=== PATIENT | male | born 1960 | race Caucasian/White ===

== ENCOUNTER 2020-01-23 11:21 | Outpatient (CLI) | payer OTHER, SELFPAY ==
--- NOTE | 2020-01-23 11:32 | MR_ITS ---
WS: [id number] MRI BRAIN WITHOUT CONTRAST HISTORY: TIA COMPARISON: None available. TECHNIQUE: Diffusion imaging, multiplanar T1, T2 and FLAIR imaging obtained. No acute infarct. There is a large remote infarct involving the RIGHT temporoparietal region. Surroun ding gliosis with mild ex vacuole dilatation of the adjacent RIGHT lateral ventricle. There are a few additional areas of scattered T2 and FLAIR signal hyperintensities from chronic ischemic disease. No hemorrhage. Mild atrophy. Slightly dilated ventricles and extra-axial spaces on the basis of atrophy and prior infarcts. No inferior displacement of cerebellar tonsils. The sella turcica and pituitary gland are unremarkabl e. Posterior fossa is also unremarkable. Dural venous sinuses and [place] demonstrate no abnormality on this unenhanced studies. Paranasal sinuses: Small mucous retention cyst in the floor the RIGHT maxillary sinus. No air-fluid l evels. Mild mucoperiosteal thickening in the frontal and ethmoid air cells. Mastoid air cells: Normal mastoid air cell disease. Calvarium and scalp: Negative. Small nodules within the RIGHT parotid. The largest measures 8 mm. May be small cysts, lymph nodes or adenoma. Chung shaped in appearance therefore suspect these are probably lymph nodes. MR/MR head wo con* [id number] IMPRESSION: 1. No evidence for an acute infarct or hemorrhage. 2. Moderate size remote RIGHT temporoparietal infarct with gliosis. 3. Mild chronic microvascular ischemic disease and mild atrophy.
--- NOTE | 2020-01-23 12:45 | USCV_ITS ---
CarmenMynor Age: 59 Gender: M : 1960 Exam Date: 01/23/2020 12:32 Ordering Phys: Calvin Peacock XX Technologist: Alysha Suggs [place] [facility] [place] Risk Factors: Previous Vascular Surgery: Right Brachial BP: / Left Brachial BP: / Right Left Velocity (cm/s) Spectral Plaque Velocity (cm/s) Spectral Plaque Syst/Diast Broadening Syst/Diast Broadening 112.50/22.10 Prox CCA 107.80/ 19.70 67.60/ 14.00 Mid CCA 79.50 / 17.10 77.70/ 21.80 Distal CCA 88.90 / 12.00 88.20/ 14.30 Prox ICA 42.20 / 18.20 59.80/ 14.80 Mid ICA 50.90 / 17.20 30.40/ 9.60 Distal ICA 68.40 / 23.30 97.10 ECA 87.80 1.31 ICA/CCA 0.86 Antegrade Vertebral Antegrade 37.40/ 13.40 cm/s 51.90/ 14.50 cm/s Tri Subclavian Tri 136.7 118.0 0 0 FINDINGS Comparison: none available. Mild dilatation of the right ICA with abnormal waveforms. Suspect distal obstructive process or occlusion which may be terminal make up operator. Normal left carotid artery. Bilateral antegrade vertebral arteries. CONCLUSIONS Abnormal right ICA and abnormal waveform, suspect due to occlusion or high grade stenosis distal intracranial carotid. CTA carotid/cerebral arteries recommended to confirm origin of abnormal findings. Dr. Coral Pike DO (Electronically Signed) Final Date: 23 January 2020 13:13 S
== END 2020-01-23 11:22 | disposition home or self-care (01) ==
PROVIDERS: Family Provider Internal Medicine; PCP Internal Medicine; Visit Provider Internal Medicine
DX: G45.9 Transient cerebral ischemic attack, unspecified (principal); I99.8 Other disorder of circulatory system
CPT/HCPCS: 70551; 93880

== ENCOUNTER 2020-04-25 12:31 | Outpatient (CLI) | payer OTHER, SELFPAY ==
--- NOTE | 2020-04-25 12:43 | CT_ITS ---
WS: [id number] CTA HEAD AND NECK TECHNIQUE: Contrast enhanced CTA of the head and neck with coronal and sagittal reformatted images an d maximum intensity projection (MIP) images. NASCET criteria utilized. CLINICAL INFORMATION: HX OF TIA COMPARISON: Ultrasound January 23, 2020 DLP: 1936.[address] scans at [facility] use at least one of these dose optimization techniques: automat ed exposure control; mA and/or kV adjustment per patient size (includes targeted exams where dose is matched to clinical indication); or iterative reconstruction. FINDINGS: RIGHT: Right common carotid artery is patent. Normal right carotid bulb. Retropharyngeal course to th e right cervical ICA with tortuous right cervical ICA. Right ICA is patent to the skull base. Moderat e calcified cavernous carotid calcification. LEFT: Left common carotid artery is patent. Tortuous left cervical ICA. Mild calcified atheromatous d isease left carotid bulb extending into the cervical ICA. No significant stenosis. Left ICA is patent to the skull base. Both vertebral arteries are patent. Basilar artery is patent. Normal vascularity to the PRODUCT DEVELOPMENT TECHNICIAN territory bilaterally. Normal vascularity to the VINICIO and MCA territories bilaterally. No evidence of proximal high-grade stenosis or aneurysm. Lung apices are normal. Both vertebral arteries are patent.Chronic infarct in the right posterior fro ntal lobe with encephalomalacia. Chronic lacunar infarct left thalamus. Small chronic infarct left ce rebellum. Moderate parenchymal volume loss. Mild small vessel changes. Small retention cyst right max illary sinus. Mucosal thickening with partial opacification the right sphenoid sinus and posterior ri ght ethmoid air cells. CT/CT angio headneck* [id number] IMPRESSION: 1. Less than 50% ICA stenosis bilaterally. 2. Unremarkable intracranial CTA. 3. Codominant and patent vertebral arteries bilaterally. 4. Chronic infarct right posterior frontal lobe. 5. Chronic lacunar infarct left thalamus and left cerebellum.
[2020-04-25] MEDS: iohexol 350 mg/mL 100 mL Btl IV (13:34)
== END 2020-04-25 12:32 | disposition home or self-care (01) ==
PROVIDERS: Family Provider Internal Medicine; PCP Internal Medicine; Visit Provider Family Medicine
DX: Z86.73 Personal history of transient ischemic attack (TIA), and cerebral infarction without residual deficits (principal); I65.23 Occlusion and stenosis of bilateral carotid arteries; I63.9 Cerebral infarction, unspecified; I63.81 Other cerebral infarction due to occlusion or stenosis of small artery
CPT/HCPCS: 70496; 70498; Q9967

== ENCOUNTER 2020-04-25 12:35 | Outpatient (CLI) | payer OTHER, SELFPAY ==
--- NOTE | 2020-04-25 12:44 | CT_ITS ---
WS: [id number] CT CHEST TECHNIQUE: Contrast enhanced CT of the chest with coronal and sagittal reformatted images. CLINICAL INFORMATION: ABNORMAL CT COMPARISON: None. DLP: 664.[address] scans at [facility] use at least one of these dose optimization techniques: automat ed exposure control; mA and/or kV adjustment per patient size (includes targeted exams where dose is matched to clinical indication); or iterative reconstruction. FINDINGS: Moderate chronic emphysematous changes. No acute pulmonary infiltrates. Focal opacity along the right fissure appears to represent subsegmental atelectasis measuring 15 mm. Prominent lymph node right ax illa measuring 11 mm likely reactive. No left axillary lymphadenopathy. No mediastinal or hilar lymph adenopathy. Chronic right rib fractures with callus formation. Bulla formation left lower lobe measur ing 7.8 cm. Normal thoracic aorta and proximal main pulmonary arteries. Adrenal glands are normal. Normal GE junc tion. Low-attenuation lesion in the caudate measuring 2.2 CM likely hepatic cysts. Slight heterogenei ty in the head of the pancreas partially visualized and may be normal volume averaging but recommend CT abdomen pelvis for further evaluation. CT/CT chest w con* [id number] IMPRESSION: 1. Moderate chronic emphysematous changes. No suspicious pulmonary parenchymal abnormalities. 2. Focal opacity along the right fissure likely represents subsegmental atelec tasis or fibrosis. Recommend 6 month follow-up chest CT to confirm stability. 3. 2.2 cm low-attenuation lesion in the caudate lobe of the liver likely hepat ic cyst. 4. Slight heterogeneous low-attenuation head of the pancreas most likely volum e averaging but recommend CT abdomen pelvis for further evaluation. This is onl y partially included on this exam
[2020-04-25 13:05] LABS: Blood Urea Nitrogen 13 mg/dL (8-23); Glomerular Filtration Rate 76.2 mL/min (90-130)
[2020-04-25] MEDS: iohexol 350 mg/mL 100 mL Btl IV (13:39)
== END 2020-04-25 12:36 | disposition home or self-care (01) ==
LOC: RADWPI 12:36
PROVIDERS: Visit Provider Internal Medicine
DX: R93.89 Abnormal findings on diagnostic imaging of other specified body structures (principal); K76.9 Liver disease, unspecified
CPT/HCPCS: 71260; 82565; 84520; Q9967

== ENCOUNTER → 2020-06-13 09:50 | Outpatient (BNVA) | payer OTHER, SELFPAY | PROVIDERS: Referring Provider Family Medicine; Visit Provider Specialist | DX: R56.9 Unspecified convulsions (principal); I99.8 Other disorder of circulatory system; G43.711 Chronic migraine without aura, intractable, with status migrainosus; F17.210 Nicotine dependence, cigarettes, uncomplicated; Z86.73 Personal history of transient ischemic attack (TIA), and cerebral infarction without residual deficits | CPT/HCPCS: 99215 ==

== ENCOUNTER → 2020-07-11 14:05 | Outpatient (BNVA) | payer OTHER, SELFPAY | PROVIDERS: Visit Provider Specialist | DX: R56.9 Unspecified convulsions (principal) | CPT/HCPCS: 95816 ==

== ENCOUNTER → 2021-01-23 10:38 | Outpatient (BNVA) | payer OTHER, SELFPAY | PROVIDERS: Visit Provider Specialist | DX: G43.711 Chronic migraine without aura, intractable, with status migrainosus (principal); F60.9 Personality disorder, unspecified; R56.9 Unspecified convulsions; F17.210 Nicotine dependence, cigarettes, uncomplicated | CPT/HCPCS: 99214 ==

== ENCOUNTER → 2021-12-29 13:15 | Outpatient (BNVA) | payer OTHER, SELFPAY | PROVIDERS: Visit Provider Internal Medicine Pulmonary Disease | DX: J44.9 Chronic obstructive pulmonary disease, unspecified (principal); R91.1 Solitary pulmonary nodule; F17.210 Nicotine dependence, cigarettes, uncomplicated; Z99.81 Dependence on supplemental oxygen; E78.5 Hyperlipidemia, unspecified | CPT/HCPCS: 99204 ==

== ENCOUNTER 2022-01-01 13:23 | Outpatient (CLI) | payer OTHER, SELFPAY ==
[2022-01-01 14:26] LABS: Basophils # 0.1 10^3/uL (0.0-0.1); Basophils % 0.8 %; Eosinophils # 0.3 10^3/uL (0.0-0.8); Eosinophils % 3.8 %; Hematocrit 50.6 % (42.0-52.0); Hemoglobin 17.9 g/dL (11.7-16.6); Lymphocytes # 1.9 10^3/uL (0.8-4.8); Lymphocytes % 24.6 %; Mean Corpuscular HGB Conc 35.4 g/dL (30.0-36.0); Mean Corpuscular Hemoglobin 36.9 pg (28.0-34.0); Mean Corpuscular Volume 104.3 fl (80-94); Mean Platelet Volume 10.6 fL (7.4-10.4); Monocytes # 0.7 10^3/uL (0.2-0.9); Monocytes % 9.6 %; Neutrophils # 4.61 10^3/uL (1.8-7.7); Neutrophils % 60.9 %; Nucleated Red Blood Cells % 0 %; Platelet Count 189 10^3/cmm (130-400); Red Blood Count 4.85 10^6/uL (4.1-5.3); Red Cell Distribution Width 13.4 % (12.1-15.1); White Blood Count 7.6 10^3/uL (4.0-10.0)
--- NOTE | 2022-01-01 16:40 | ONC CON_ITS ---
Dr. José New Patient Note Patient: Mynor Morales Unit #: [id number]: 1960 Dicatated By: Joce José M.D.Date of Visit: Jan 01, 2022 Onc MED New Patient/Consult Referring Physician: Roula Shaw History of Present Illness: Mr. Mynor Morales, is a 61-year-old gentleman with a history of sleep apnea, on CPAP machine, COPD, on home oxygen and heavy smoking e.g. 1 to 3 packs a day, since age 8, , as per patient' he used to donate blood on a regular basis and last time , in 2019 ,when he went for blood donation, he was sent back because his blood was too thick. Patient said he was on oxygen [id number] and then his physician cut down his oxygen duration as he was maintaining his oxygen saturation in normal range. Patient also has history of sleep apnea but not using his CPAP machine as recommended. And he continues to smoke about a pack a day. Denies any family history of polycythemia, denies any headaches, denies any chest pain or heaviness, denies any hemoptysis or hematemesis. Denies any night sweats, denies any abdominal fullness denies any melena or hematochezia or jaundice As per patient he has arrowhead-like shadow in his right lung for which he is being followed by Dr. Shields, pulmonology and follow-up screening CT scan of the chest is under consideration and as per patient if it shows progression then bronchoscopy will be done. Past Medical History: Mr. Morales's medical history consists of alcohol dependence, cervicalgia, chronic obstructive pulmonary disease, chronic pain syndrome, depression, eft hip pain, history of pulmonary embolism, history of TIA, hyperlipidemia, intermittent explosive disorder, long time use of anticoagulants, peripheral vascular disease, and stimulant dependence. Past Surgical History: Mr. Morales's surgical/procedural history consists of appendectomy, left ankle repair, left carpal tunnel release, Covid vaccine #1 Chet J&J in 2020, Covid vaccine #1 Chet J&J in 2020, hip replacement x 4 in 1999, and neck surgery in 1993. Medications: Albuterol Sulfate 2 Puff(s) (of 108 (90 base) mcg/act) Aerosol Powder, Breath Activated Inhalation four times a day, Alendronate Sodium 1 Tablet (of 35 mg) Oral, Allopurinol 1 Tablet (of 300 mg) Oral daily, Budesonide-Formoterol Fumarate 2 Puff(s) (of 160-4.5 mcg/act) Aerosol Inhalation b.i.d., Carvedilol 0.5 Tablet (of 6.25 mg) Oral b.i.d., Cholecalciferol 1 Capsule (of 1000 International Unit(s)) Oral daily, Diclofenac Sodium 2 g (of 1.6 %) Gel (jelly) Topical four times a day PRN, Dicyclomine HCl 1 Tablet (of 20 mg) Oral t.i.d., DULoxetine HCl 1 Capsule (of 60 mg) Capsule Delayed Release Particles Oral every am, Floxin Otic 4 Drop(s) (of 0.3 %) Solution Otic b.i.d., Fluorometholone Acetate 1 Drop(s) (of 0.1 %) Suspension Ophthalmic b.i.d., guaiFENesin 1 Tablet (of 200 mg) Oral q 6 hours PRN, hydroCHLOROthiazide 0.5 Tablet (of 25 mg) Oral every am, Ipratropium-Albuterol Aerosol, solution Inhalation, Loperamide HCl 2 Capsule (of 2 mg) Oral four times a day PRN, Meclizine HCl 0.5 Tablet (of 25 mg) Tablet, chewable Oral t.i.d. PRN, Methocarbamol 2 Tablet (of 750 mg) Oral t.i.d. PRN, Nicotine Mini 1 Lozenge (of 4 mg) Mouth/throat q 4 hours PRN, Pravastatin Sodium 1 Tablet (of 40 mg) Oral ac pm, Pregabalin 1 Capsule (of 100 mg) Oral t.i.d., raNITIdine HCl 1 Tablet (of 150 mg) Oral b.i.d., Rivaroxaban 1 Tablet (of 20 mg) Oral at bedtime, Salsalate 1 Tablet (of 750 mg) Oral b.i.d., Sildenafil Citrate 1 Tablet (of 100 mg) Oral PRN, Terbinafine HCl (1 %) Cream Topical b.i.d., Topamax 1 Tablet (of 25 mg) Oral b.i.d., Topiramate 1 Tablet (of 100 mg) Oral at bedtime, Wixela Inhub Aerosol Powder, Breath Activated Inhalation Allergies: fentaNYL, Ketorolac Tromethamine, Meperidine HCl, and predniSONE. Social History: Mr. Morales is . He is an occasional smoker who smokes 1.0 pack/day. He has no history of drinking. He has indicated exposure to the following products: cigarettes. Family History: Mr. Morales's mother is : breast cancer. Mr. Morales's father at age 65: stroke. Review Of Symptoms: Review of Systems is not available for this patient. Vital Signs: Performed on Jan 01, 2022 15:34: 10, 9, 29.61, 2.26 sq.m, 73 in, 95 % (LOW), 84 /min, 18 /min, 119/76 mm(hg), 98.2 F (LOW), and 224.4 lbs (HIGH). Performance Status: 1 - No physically strenuous activity, but ambulatory and able to carry out light or sedentary work (e.g. office work, light house work). (ECOG) Physical Examination: ENMT - No mouth sores, no thrush, no jaundice, no cervical lymphadenopathy, Respiratory - Poor air entry otherwise clear, Cardiovascular - Regular rate and rhythm of heart, Abdomen - Soft, bowel sounds present, Extremities - No visible edema. Lab/Imaging: Most recent lab results are not available for this patient. Impression: Polycythemia, etiology unclear probably reactive/secondary to chronic lung condition requiring continuous home oxygen and chronic heavy smoking and noncompliance with sleep apnea management, other possibility could be polycythemia vera but less likely COPD on continuous home oxygen Chronic smoking since age 8, still active Plan: Discussed with patient regarding his labs white blood count 7.6 hemoglobin 17.9 normal being 11.7-16.6, hematocrit 50.6 normal being 42-52, platelets 189,000 Clinically, patient denies any specific complaints, today's lab shows improvement in his hematocrit when compared with CBC done on October 06, 2019 at that time his hemoglobin was 19.4 and hematocrit was 55.9 normal being 38.2-48.4, as per patient for the last couple of months he has been using his oxygen on regular basis. Still smoke about pack a day and still not using his CPAP machine as recommended by his PMD. Etiology of his polycythemia, could be due to hypoxia due to chronic smoking, underlying lung condition, noncompliant with CPAP machine and oxygen supplement. Patient was advised to quit smoking and was offered any assistance he may need patient was also advised to use CPAP machine as recommended by PMD, patient was also advised to discuss with pulmonology regarding optimal oxygen supplementation. His repeat labs done today shows improvement in his hematocrit now in normal range, will continue to monitor and he will return to clinic in 1 month with CBC.In the meantime patient was advised to maintain hydration and take aspirin a day. Patient also has concerns about his right lung abnormality for which he is being evaluated by pulmonology,, patient brought CD of his CT scan done in [place], we will request our radiology to reevaluate. Signed By: Joce José M.D. <<Signature on File>>
== END 2022-01-01 13:24 | disposition home or self-care (01) ==
PROVIDERS: Internal Medicine Hematology & Oncology; Visit Provider Internal Medicine Medical Oncology
DX: D75.1 Secondary polycythemia (principal); J44.9 Chronic obstructive pulmonary disease, unspecified; G47.33 Obstructive sleep apnea (adult) (pediatric); F17.210 Nicotine dependence, cigarettes, uncomplicated; Z99.81 Dependence on supplemental oxygen; Z79.899 Other long term (current) drug therapy
CPT/HCPCS: 36415; 85025; 99205

== ENCOUNTER 2022-01-28 12:49 | Outpatient (CLI) | payer OTHER, SELFPAY ==
[2022-01-28 13:40] LABS: Basophils # 0.1 10^3/uL (0.0-0.1); Eosinophils # 0.2 10^3/uL (0.0-0.8); Eosinophils % 3.5 %; Hematocrit 50.3 % (42.0-52.0); Hemoglobin 17.3 g/dL (11.7-16.6); Lymphocytes # 1.7 10^3/uL (0.8-4.8); Lymphocytes % 24.2 %; Mean Corpuscular HGB Conc 34.4 g/dL (30.0-36.0); Mean Corpuscular Volume 104.8 fl (80-94); Mean Platelet Volume 10.5 fL (7.4-10.4); Monocytes # 0.6 10^3/uL (0.2-0.9); Monocytes % 8.1 %; Neutrophils # 4.33 10^3/uL (1.8-7.7); Neutrophils % 62.5 %; Nucleated Red Blood Cells % 0 %; Platelet Count 199 10^3/cmm (130-400); Red Cell Distribution Width 13.3 % (12.1-15.1); White Blood Count 6.9 10^3/uL (4.0-10.0)
--- NOTE | 2022-02-01 17:31 | ONC FU_ITS ---
Dr. José follow up note Patient: Mynor Morales Unit #: [id number]: 1960 Dicatated By: Joce José M.D.Date of Visit:Jan 28, 2022 Onc Med Follow-up/Prog Note History of Present Illness: Mr. Mynor Morales, is a 61-year-old gentleman with a history of sleep apnea, on CPAP machine, COPD, on home oxygen and heavy smoking e.g. 1 to 3 packs a day, since age 8, , as per patient' he used to donate blood on a regular basis and last time , in 2019 ,when he went for blood donation, he was sent back because his blood was too thick. Patient said he was on oxygen [id number] and then his physician cut down his oxygen duration as he was maintaining his oxygen saturation in normal range. Patient also has history of sleep apnea but not using his CPAP machine as recommended. And he continues to smoke about a pack a day. Denies any family history of polycythemia, denies any headaches, denies any chest pain or heaviness, denies any hemoptysis or hematemesis. Denies any night sweats, denies any abdominal fullness denies any melena or hematochezia or jaundice As per patient he has arrowhead-like shadow in his right lung for which he is being followed by Dr. Shields, pulmonology and follow-up screening CT scan of the chest was Done on December 05, 2021 showed soft tissue mass density involving right hilum extending into anterior lateral right lung base larger since October 06, 2021 and significantly larger since April 09, 2021 suspicious for malignancy. Also showed central obstructing mass causing atelectasis and consolidation cannot be ruled out. Soft tissue fullness in the right hilum appearing mildly worsened since October 2021. Patient was evaluated by pulmonology and CT PET scan was ordered by Dr. Shields which was done on January 03, 2022 and it showed the right hilum is prominent but does not demonstrate FDG activity, consistent with benign finding. Right lower lobe atelectasis is FDG negative. There is no finding suggestive of malignancy. Came for follow-up, denies any specific complaints, no fever or chills, no nausea or vomiting, no diarrhea constipation, no hemoptysis hematemesis, patient on home oxygen, and is using his CPAP and also quit Smoking. And now being evaluated by pulmonology regarding right hilar mass Medications: Albuterol Sulfate 2 Puff(s) (of 108 (90 base) mcg/act) Aerosol Powder, Breath Activated Inhalation four times a day, Alendronate Sodium 1 Tablet (of 35 mg) Oral, Allopurinol 1 Tablet (of 300 mg) Oral daily, Budesonide-Formoterol Fumarate 2 Puff(s) (of 160-4.5 mcg/act) Aerosol Inhalation b.i.d., Carvedilol 0.5 Tablet (of 6.25 mg) Oral b.i.d., Cholecalciferol 1 Capsule (of 1000 International Unit(s)) Oral daily, Diclofenac Sodium 2 g (of 1.6 %) Gel (jelly) Topical four times a day PRN, Dicyclomine HCl 1 Tablet (of 20 mg) Oral t.i.d., DULoxetine HCl 1 Capsule (of 60 mg) Capsule Delayed Release Particles Oral every am, Floxin Otic 4 Drop(s) (of 0.3 %) Solution Otic b.i.d., Fluorometholone Acetate 1 Drop(s) (of 0.1 %) Suspension Ophthalmic b.i.d., guaiFENesin 1 Tablet (of 200 mg) Oral q 6 hours PRN, hydroCHLOROthiazide 0.5 Tablet (of 25 mg) Oral every am, Ipratropium-Albuterol Aerosol, solution Inhalation, Loperamide HCl 2 Capsule (of 2 mg) Oral four times a day PRN, Meclizine HCl 0.5 Tablet (of 25 mg) Tablet, chewable Oral t.i.d. PRN, Methocarbamol 2 Tablet (of 750 mg) Oral t.i.d. PRN, Nicotine Mini 1 Lozenge (of 4 mg) Mouth/throat q 4 hours PRN, Pravastatin Sodium 1 Tablet (of 40 mg) Oral ac pm, Pregabalin 1 Capsule (of 100 mg) Oral t.i.d., raNITIdine HCl 1 Tablet (of 150 mg) Oral b.i.d., Rivaroxaban 1 Tablet (of 20 mg) Oral at bedtime, Salsalate 1 Tablet (of 750 mg) Oral b.i.d., Sildenafil Citrate 1 Tablet (of 100 mg) Oral PRN, Terbinafine HCl (1 %) Cream Topical b.i.d., Topamax 1 Tablet (of 25 mg) Oral b.i.d., Topiramate 1 Tablet (of 100 mg) Oral at bedtime, Wixela Inhub Aerosol Powder, Breath Activated Inhalation Allergies: fentaNYL, Ketorolac Tromethamine, Meperidine HCl, and predniSONE. Review of Systems: Review of Systems is not available for this patient. Vital Signs: Performed on Jan 28, 2022 13:50 Height - 73.00 in Weight - 230 lbs (HIGH) BSA - 2.28 sq.m BMI - 30.35 (HIGH) Temperature - 98 F (LOW) Pulse - 82 /min Respiration - 20 /min BP - 111/76 mm(hg) O2 Sat - 97 % Pain - 8 Fatigue - 7 Performance Status: 1 - No physically strenuous activity, but ambulatory and able to carry out light or sedentary work (e.g. office work, light house work). (ECOG) Physical Examination: ENMT - No mouth sores, no thrush, no jaundice, no cervical lymphadenopathy, Respiratory - Poor air entry otherwise clear, Cardiovascular - Regular rate and rhythm of heart, Abdomen - Soft, bowel sounds present, Extremities - No visible edema. Lab/Imaging: Most recent lab results are not available for this patient. Impression: Polycythemia, etiology unclear probably reactive/secondary to chronic lung condition requiring continuous home oxygen and chronic heavy smoking and noncompliance with sleep apnea management, other possibility could be polycythemia vera but less likely COPD on continuous home oxygen Chronic smoking since age 8, still active Plan: Discussed with patient regarding his labs white blood count 6.9 hemoglobin 17.3 hematocrit 50.3 platelets 199,[address] PET scan done on January 03, 2022 showed prominent right hilum with unremarkable FDG activity, consistent with benign findings. Negative for malignancy. Pulmonary hypertension. Clinically, patient doing well with no new signs symptoms, his follow-up CBC shows stable hemoglobin/hematocrit, patient has mild polycythemia probably secondary to hypoxia due to chronic smoking, underlying chronic lung disease/emphysema and he is on home oxygen also has history of sleep apnea and noncompliant with CPAP. Patient quit smoking and now using his home oxygen as recommended. Patient was encouraged and congratulated on quitting smoking. As far as right hilar mass is concerned, patient is being followed by pulmonology Dr. Shields, patient recently underwent CT PET scan shows no evidence of abnormality in the right hilum. Patient is scheduled see Dr. Shields. We will continue to follow him from hematological point of view, he will return to clinic in 1 month with CBC. Signed By: Joce José M.D. <<Signature on File>>
== END 2022-01-28 12:50 | disposition home or self-care (01) ==
PROVIDERS: Visit Provider Internal Medicine Hematology & Oncology
DX: D75.1 Secondary polycythemia (principal); F17.210 Nicotine dependence, cigarettes, uncomplicated; Z99.81 Dependence on supplemental oxygen; G47.30 Sleep apnea, unspecified; Z91.19 Patient's noncompliance with other medical treatment and regimen
CPT/HCPCS: 36415; 85025; 99214

== ENCOUNTER → 2022-01-30 10:22 | Outpatient (BNVA) | payer OTHER, SELFPAY | PROVIDERS: Visit Provider Internal Medicine Pulmonary Disease | DX: J44.9 Chronic obstructive pulmonary disease, unspecified (principal); F17.210 Nicotine dependence, cigarettes, uncomplicated; R91.1 Solitary pulmonary nodule; Z99.81 Dependence on supplemental oxygen; E78.5 Hyperlipidemia, unspecified | CPT/HCPCS: 99214 ==

== ENCOUNTER 2022-03-04 12:28 | Oncology outpatient (recurring) (ONCR) | payer OTHER, SELFPAY ==
[2022-03-04 12:53] LABS: Basophils # 0.1 10^3/uL (0.0-0.1); Eosinophils # 0.3 10^3/uL (0.0-0.8); Eosinophils % 4.3 %; Hemoglobin 16.4 g/dL (11.7-16.6); Lymphocytes # 1.9 10^3/uL (0.8-4.8); Lymphocytes % 26.8 %; Mean Corpuscular HGB Conc 34.2 g/dL (30.0-36.0); Mean Corpuscular Hemoglobin 35.8 pg (28.0-34.0); Mean Corpuscular Volume 104.8 fl (80-94); Mean Platelet Volume 10.2 fL (7.4-10.4); Monocytes # 0.7 10^3/uL (0.2-0.9); Monocytes % 9.7 %; Neutrophils # 4.19 10^3/uL (1.8-7.7); Neutrophils % 57.9 %; Nucleated Red Blood Cells % 0 %; Platelet Count 164 10^3/cmm (130-400); Red Blood Count 4.58 10^6/uL (4.1-5.3); Red Cell Distribution Width 13.9 % (12.1-15.1); White Blood Count 7.2 10^3/uL (4.0-10.0)
== END 2022-04-02 23:59 | disposition home or self-care (01) ==
PROVIDERS: Visit Provider Internal Medicine Hematology & Oncology
DX: D75.1 Secondary polycythemia (principal); J44.9 Chronic obstructive pulmonary disease, unspecified; Z99.81 Dependence on supplemental oxygen; Z87.891 Personal history of nicotine dependence; R91.1 Solitary pulmonary nodule; G47.33 Obstructive sleep apnea (adult) (pediatric)
CPT/HCPCS: 85025; 99214

== ENCOUNTER 2022-04-15 08:53 | Outpatient (CLI) | payer OTHER, SELFPAY ==
--- NOTE | 2022-04-15 12:36 | PFTS_ITS ---
Date of Study:04/15/22 Date of Dictation: 04/18/2022 MECHANICS: Postbronchodilator forced vital capacity (FVC) is normal. Postbronchodilator forced expiratory volume in one second (FEV1) is moderately reduced. FEV1/FVC is reduced. There is significant postbronchodilator response FLOW VOLUME LOOP: Sloping of expiratory limb suggestive of airway obstruction . LUNG VOLUMES: Total lung capacity (TLC) is normal. Residual volume (RV) is increased suggestive of air trapping. DIFFUSING CAPACITY FOR CARBON MONOXIDE: Normal . INTERPRETATION: The spirometry showed moderate obstructive ventilatory defect. There is significant postbronchodilator response. Lung volumes suggestive of moderate air trapping. Gas transfer is normal. Clinical correlation recommended. [facility]
== END 2022-04-15 08:54 | disposition home or self-care (01) ==
LOC: RT 08:54
PROVIDERS: PCP Family Medicine; Visit Provider Internal Medicine Pulmonary Disease
DX: J44.9 Chronic obstructive pulmonary disease, unspecified (principal)
CPT/HCPCS: 94060; 94618; 94726; 94729; J7614

== ENCOUNTER → 2022-05-08 09:30 | Outpatient (BNVA) | payer OTHER, SELFPAY | PROVIDERS: PCP Family Medicine; Visit Provider Internal Medicine Pulmonary Disease | DX: J44.9 Chronic obstructive pulmonary disease, unspecified (principal); R91.1 Solitary pulmonary nodule; F17.210 Nicotine dependence, cigarettes, uncomplicated; Z86.711 Personal history of pulmonary embolism | CPT/HCPCS: 99214 ==

== ENCOUNTER 2022-05-11 09:13 | Oncology outpatient (recurring) (ONCR) | payer OTHER, SELFPAY ==
[2022-05-11 09:19] LABS: Basophils # 0.1 10^3/uL (0.0-0.1); Basophils % 0.9 %; Eosinophils # 0.3 10^3/uL (0.0-0.8); Eosinophils % 3.7 %; Hematocrit 43.6 % (42.0-52.0); Hemoglobin 15.8 g/dL (11.7-16.6); Lymphocytes # 1.9 10^3/uL (0.8-4.8); Lymphocytes % 22.9 %; Mean Corpuscular HGB Conc 36.2 g/dL (30.0-36.0); Mean Corpuscular Hemoglobin 35.8 pg (28.0-34.0); Mean Corpuscular Volume 98.9 fl (80-94); Mean Platelet Volume 9.7 fL (7.4-10.4); Monocytes # 0.7 10^3/uL (0.2-0.9); Monocytes % 8.4 %; Neutrophils # 5.17 10^3/uL (1.8-7.7); Neutrophils % 63.6 %; Nucleated Red Blood Cells % 0 %; Platelet Count 212 10^3/cmm (130-400); Red Blood Count 4.41 10^6/uL (4.1-5.3); White Blood Count 8.1 10^3/uL (4.0-10.0)
== END 2022-06-03 23:59 | disposition home or self-care (01) ==
PROVIDERS: Nurse Practitioner; PCP Family Medicine; Visit Provider Internal Medicine Hematology & Oncology
DX: D75.1 Secondary polycythemia (principal); R91.1 Solitary pulmonary nodule; Z87.891 Personal history of nicotine dependence; J44.9 Chronic obstructive pulmonary disease, unspecified; Z99.81 Dependence on supplemental oxygen
CPT/HCPCS: 36415; 85025; 99214; G0463

== ENCOUNTER → 2022-08-19 12:38 | Outpatient (BNVA) | payer OTHER, SELFPAY | PROVIDERS: PCP Family Medicine; Referring Provider Family Medicine; Visit Provider Orthopaedic Surgery | DX: M16.11 Unilateral primary osteoarthritis, right hip (principal) | CPT/HCPCS: 99203 ==

== ENCOUNTER → 2023-07-08 12:04 | Outpatient (BNVA) | payer OTHER, SELFPAY | PROVIDERS: PCP Family Medicine; Visit Provider Podiatrist Foot & Ankle Surgery | DX: M25.572 Pain in left ankle and joints of left foot (principal); L84 Corns and callosities | CPT/HCPCS: 73610; 99203 ==

== ENCOUNTER → 2024-01-24 09:48 | Outpatient (BNVA) | payer OTHER, SELFPAY | PROVIDERS: PCP Family Medicine; Visit Provider Podiatrist Foot & Ankle Surgery | DX: L84 Corns and callosities | CPT/HCPCS: 11055; 99213 ==

== ENCOUNTER → 2024-02-24 09:16 | Outpatient (BNVA) | payer OTHER, SELFPAY | PROVIDERS: PCP Family Medicine; Visit Provider Internal Medicine Pulmonary Disease | DX: J44.9 Chronic obstructive pulmonary disease, unspecified (principal); R91.1 Solitary pulmonary nodule; Z87.891 Personal history of nicotine dependence | CPT/HCPCS: 99214 ==

== ENCOUNTER → 2024-04-03 10:00 | Outpatient (BNVA) | payer OTHER, SELFPAY | PROVIDERS: PCP Family Medicine; Visit Provider Podiatrist Foot & Ankle Surgery | DX: L84 Corns and callosities; I73.9 Peripheral vascular disease, unspecified; B35.3 Tinea pedis | CPT/HCPCS: 11055; 99213 ==

== ENCOUNTER 2024-04-28 09:22 | Outpatient (CLI) | payer OTHER, SELFPAY ==
--- NOTE | 2024-04-28 09:25 | FL_ITS ---
WS: [id number] FL barium swallow [id number] REASON FOR EXAM: ?ASPIRATION FLUOROSCOPY TIME: 4min [id number] # OF SPOT FILMS: Multiple FINDINGS: Patient was unable to stand and had difficulty with other positioning is well. Patient was studied in the semiupright AP, lateral, and DELGADO positions. Swallowing of barium was monit ored and evaluated from the oropharynx to the gastroesophageal junction. The cervical esophagus was u nremarkable. No aspiration was identified. The patient had an extremely weak primary peristaltic wave, almost no normal peristalsis, in the thor acic esophagus with retention of contrast from the gastroesophageal junction to near the thoracic inl et. Significant and persistent tertiary contractions were demonstrated. Significant and persistent lo wer esophageal sphincter spasm was identified. No significant hiatal hernia or reflux. FL/FL barium swallow [id number] IMPRESSION: Limited examination. Patient has a type II or type III achalasia. Due to the prolonged retention of a significant volume of barium in the thoraci c esophagus the patient is likely at high risk for aspiration.
== END 2024-04-28 09:23 | disposition home or self-care (01) ==
LOC: RAD 09:22
PROVIDERS: PCP Family Medicine; Visit Provider Family Medicine
DX: K22.0 Achalasia of cardia (principal)
CPT/HCPCS: 74220

== ENCOUNTER → 2024-06-09 10:08 | Outpatient (BNVA) | payer OTHER, SELFPAY | PROVIDERS: PCP Family Medicine; Visit Provider Podiatrist Foot & Ankle Surgery | DX: L84 Corns and callosities (principal); I73.9 Peripheral vascular disease, unspecified | CPT/HCPCS: 11055 ==

== ENCOUNTER → 2024-08-03 13:54 | Outpatient (BNVA) | payer OTHER, SELFPAY | PROVIDERS: PCP Family Medicine; Visit Provider Internal Medicine Cardiovascular Disease | DX: I21.9 Acute myocardial infarction, unspecified (principal); I49.8 Other specified cardiac arrhythmias; R07.9 Chest pain, unspecified; Q24.8 Other specified congenital malformations of heart; I45.10 Unspecified right bundle-branch block | CPT/HCPCS: 93005 ==

== ENCOUNTER → 2024-10-26 09:35 | Outpatient (BNVA) | payer OTHER, SELFPAY | PROVIDERS: PCP Family Medicine; Visit Provider Podiatrist Foot & Ankle Surgery | DX: L84 Corns and callosities (principal); I73.9 Peripheral vascular disease, unspecified | CPT/HCPCS: 11055 ==

== ENCOUNTER → 2025-04-05 12:19 | Outpatient (BNVA) | payer OTHER, SELFPAY | PROVIDERS: PCP Family Medicine; Visit Provider Internal Medicine Cardiovascular Disease | DX: I45.10 Unspecified right bundle-branch block (principal); J44.9 Chronic obstructive pulmonary disease, unspecified; Z79.01 Long term (current) use of anticoagulants; F17.210 Nicotine dependence, cigarettes, uncomplicated; R06.02 Shortness of breath | CPT/HCPCS: 99214 ==